=== PATIENT | female | born 1980 | race Two or more races ===

== ENCOUNTER 2019-11-12 05:22 | Day surgery (SDC) | payer OTHER ==
[2019-11-08 18:15] VITALS: BMI 43.4
[2019-11-12] MEDS ORDERED: MIDAZOLAM HCL 2 MG/2 ML SINGLE DOSE VIAL ONE (11:07)
[2019-11-12] MEDS ORDERED: PROPOFOL 20 ML ONE (11:07)
[2019-11-12] MEDS ORDERED: ceFAZolin SODIUM 1 GM VIAL IVPB ONE ×2 (11:30→12:15)
[2019-11-12] MEDS ORDERED: EPHEDRINE SULFATE/0.9% NACL/PF 50 MG/10 ML SYRINGE NR ONE (11:35)
[2019-11-12] MEDS ORDERED: IBUPROFEN 400 MG TABLET (FP) PO PRN (12:55)
[2019-11-12] MEDS ORDERED: ACETAMINOPHEN 325 MG TABLET (FP) PO PRN (12:55)
--- NOTE | 2019-11-12 12:55 | HP ---
History & Physical Update - History History: No Change - Physical Physical: No Change - Assessment Assessment: No Change - Plan Plan: No Change (No change in HP)
--- NOTE | 2019-11-12 13:17 | OP ---
Operative Note - Note: Operative Date: 11/12/19 Pre-Operative Diagnosis: Endometrial polyp Operation: Hysteroscopic Myomectomy. Suction DC Findings: Submucosal myoma Endometrial polyp Post-Operative Diagnosis: Same as Pre-op Surgeon: Johanna Kelley Anesthesia: General Estimated Blood Loss (mls): 30 Operative Report Dictated: Yes
[2019-11-12] MEDS ORDERED: oxyCODONE HCL 5 MG TABLET PO PRN ×2 (14:10)
[2019-11-12] MEDS ORDERED: ONDANSETRON 4 MG/2 ML VIAL IVPUSH PRN (14:10)
[2019-11-12] MEDS ORDERED: LACTATED RINGERS SOLUTION 1,000 ML IV SCH (14:15)
--- NOTE | 2019-11-12 14:47 | OP ---
DATE OF OPERATION: 11/12/2019 PREOPERATIVE DIAGNOSIS: Endometrial polyp, menorrhagia. OPERATION: Hysteroscopic myomectomy. POSTOPERATIVE DIAGNOSIS: Endometrial polyp, menorrhagia, submucosal myoma. SURGEON: Johanna Kelley MD ANESTHESIA: General. DESCRIPTION OF PROCEDURE: Patient was taken to the operating room, placed in dorsal lithotomy position, prepped and draped in the usual sterile fashion. Time-out was performed in accordance with hospital regulation. Speculum was placed in the vagina. Anterior lip of the cervix was grasped with a single-tooth tenaculum. Cervix was then dilated to accommodate the operative hysteroscope. Hysteroscope was then inserted. Visualization revealed endometrial polyps and submucosal myoma. Cautery and cutting of the polyps and myoma was done followed by suction dilation and curettage. Repeated procedure several times was done to get most of the myoma and the polyps out of the endometrial cavity. Hemostasis was achieved. All instruments were then removed. Patient had tolerated procedure well. Estimated blood loss was 20 mL. JOHANNA KELLEY M.D. JOSE ANTONIO/[id number]
[2019-11-12 17:12] VITALS: BP 107/59; PULSE 69; TEMP 97.8
--- NOTE | 2019-11-13 15:26 | PATH ---
Surgical Pathology Report Patient Name: JUAN R JANG Med. Rec. #: [id number] /Age/Gender: 1980 (Age: 39) / F Account: [id number] Location: [facility] SURGICAL Taken: 11/12/2019 Received: 11/12/2019 Reported: 11/13/2019 Physicians: Johanna Kelley M.D. Specimen(s) Received /POLYP Clinical History Cervical dysplasia, endometrial polyp Final Diagnosis ENDOMETRIUM, CURETTING: BENIGN ENDOMETRIAL POLYP, ALONG WITH BENIGN MYOMETRIAL TISSUE AND BENIGN CERVICAL TISSUE. NO ENDOMETRIAL HYPERPLASIA OR CARCINOMA IDENTIFIED. Electronically Signed Cm Delgadillo M.D. Gross Description Received in formalin labeled "endometrial curettings/polyp," is a 4.0 x 2.8 x 0.3 cm aggregate of michelle red soft to firm tissue fragments. The formalin is filtered and the specimen is entirely submitted in 2 cassettes. DL/11/12/2019 saudi/11/12/2019
== END 2019-11-12 15:45 | disposition home or self-care (01) ==
LOC: JASU-SURG 05:22
PROVIDERS: ATTEND Obstetrics & Gynecology
PROC: 0UDB7ZX Extraction of Endometrium, Via Natural or Artificial Opening, Diagnostic (ICD-10-PCS; 2019-11-12)
PROC: 0UJD8ZZ Inspection of Uterus and Cervix, Via Natural or Artificial Opening Endoscopic (ICD-10-PCS; 2019-11-12)
PROC: 0UB98ZZ Excision of Uterus, Via Natural or Artificial Opening Endoscopic (ICD-10-PCS; principal; 2019-11-12 09:30)
PROC: 0UB97ZX Excision of Uterus, Via Natural or Artificial Opening, Diagnostic (ICD-10-PCS; 2019-11-12 09:30)
DX: N92.0 Excessive and frequent menstruation with regular cycle (principal); N84.0 Polyp of corpus uteri; D25.0 Submucous leiomyoma of uterus
CPT/HCPCS: 36415; 84703; 88305-TC; 94760

== ENCOUNTER 2021-01-12 05:32 | Day surgery (SDC) | payer OTHER ==
[2021-01-09 09:02] VITALS: BMI 42.0
[2021-01-12] MEDS ORDERED: DEXAMETHASONE SOD PHOSPHATE/PF 10 MG/ML SDV ONE (07:12)
[2021-01-12] MEDS ORDERED: MIDAZOLAM HCL 2 MG/2 ML SINGLE DOSE VIAL ONE ×3 (07:13→07:22)
[2021-01-12] MEDS ORDERED: PHENAZOPYRIDINE HCL 100 MG TABLET (FP) PO ONE (07:20)
[2021-01-12] MEDS ORDERED: CEFAZOLIN 2 GM in DEXTROSE 5%-WATER - 100 ML IVPB ONE (07:20)
[2021-01-12] MEDS ORDERED: fentaNYL CITRATE 250 MCG/5 ML VIAL ONE (07:21)
[2021-01-12] MEDS ORDERED: PROPOFOL 20 ML ONE ×3 (07:21)
[2021-01-12] MEDS ORDERED: SUCCINYLCHOLINE CHLORIDE 200 MG/10 ML SYRINGE ONE (07:22)
[2021-01-12] MEDS ORDERED: ROCURONIUM BROMIDE 50 MG/5 ML SYRINGE ONE (07:22)
[2021-01-12] MEDS ORDERED: ceFAZolin SODIUM 1 GM VIAL IVPB ONE (07:55)
[2021-01-12 08:58] LABS: POTASSIUM 4.4 mmol/L (3.5-5.1)
[2021-01-12 09:00] LABS: ALBUMIN 3.2 g/dl (3.4-5.0); CALCIUM 8.8 mg/dL (8.5-10.1)
[2021-01-12 09:01] LABS: BLOOD UREA NITROGEN 19.8 mg/dL (7-18)
[2021-01-12 09:04] LABS: CREATININE 0.6 mg/dL (0.55-1.3)
[2021-01-12 09:05] LABS: BILIRUBIN,TOTAL 0.4 mg/dL (0.2-1); TOT PROT 6.6 g/dl (6.4-8.2)
[2021-01-12] MEDS ORDERED: GLYCOPYRROLATE 0.2 MG/1 ML VIAL ONE ×2 (09:36)
[2021-01-12] MEDS ORDERED: DEXAMETHASONE SOD PHOSPHATE 4 MG/1 ML VIAL ONE (09:36)
[2021-01-12] MEDS ORDERED: NEOSTIGMINE METHYLSULFATE 0.5 MG/ML - 10 ML MDV ONE (09:36)
[2021-01-12] MEDS ORDERED: ceFAZolin SODIUM 1 GM VIAL ONE (09:37)
[2021-01-12] MEDS ORDERED: DOCUSATE SODIUM 100 MG CAPSULE (FP) PO PRN (10:53)
[2021-01-12] MEDS ORDERED: BISACODYL 5 MG TABLET.DR (FP) PO PRN (10:53)
[2021-01-12] MEDS ORDERED: ONDANSETRON 4 MG/2 ML VIAL IVPUSH PRN (10:53)
[2021-01-12] MEDS ORDERED: SIMETHICONE 80 MG TAB.CHEW (FP) PO PRN (10:53)
[2021-01-12] MEDS ORDERED: oxyCODONE HCL 5 MG TABLET PO PRN (10:53)
[2021-01-12] MEDS ORDERED: SODIUM CHLORIDE 1,000 ML IV SCH (11:00)
[2021-01-12] MEDS ORDERED: IBUPROFEN 800 MG/8 ML IJ IVPB ONE (12:02)
[2021-01-12] MEDS ORDERED: oxyCODONE HCL 5 MG TABLET ONE (13:57)
[2021-01-12] MEDS: oxyCODONE HCL 5 MG TABLET PO PRN (14:13)
[2021-01-12] MEDS ORDERED: CEFAZOLIN 1 GM in DEXTROSE 5%-WATER - 1 GM/50 ML IVPB IVPB SCH (16:00)
[2021-01-12] MEDS ORDERED: IBUPROFEN 800 MG/8 ML IJ IVPB SCH (16:30)
[2021-01-12] MEDS ORDERED: CEFAZOLIN 1 GM/D5W 1 GM/50 ML BAG IVPB SCH (17:20)
[2021-01-12] MEDS: ACETAMINOPHEN 500 MG TABLET (FP) PO SCH ×2 (17:27→23:50)
[2021-01-12] MEDS: CEFAZOLIN 1 GM/D5W 1 GM/50 ML BAG IVPB SCH ×2 (17:27→23:49)
[2021-01-12] MEDS: IBUPROFEN 800 MG/8 ML IJ IVPB SCH (19:46)
[2021-01-12 20:45] LABS: HEMOGLOBIN 10.6 GM/dL (10.7-15.3); MCH 27.2 pg (25.7-33.7); MCHC 32.1 g/dl (32.0-36.0); MEAN CELL VOLUME 84.6 fl (80-96); MEAN PLT VOLUME 8.2 fl (7.5-11.1); PLATELET COUNT 265 K/MM3 (134-434); RBC 3.91 M/mm3 (3.60-5.2); RDW 14.5 % (11.6-15.6); WHITE BLOOD COUNT 11.2 K/mm3 (4.0-10.0)
[2021-01-12 20:55] LABS: POTASSIUM 4.4 mmol/L (3.5-5.1)
[2021-01-12 20:58] LABS: CALCIUM 8.6 mg/dL (8.5-10.1)
[2021-01-12 20:59] LABS: BLOOD UREA NITROGEN 14.1 mg/dL (7-18)
[2021-01-12 21:02] LABS: CREATININE 0.5 mg/dL (0.55-1.3)
[2021-01-13] MEDS: IBUPROFEN 800 MG/8 ML IJ IVPB SCH ×2 (03:42→12:38)
[2021-01-13] MEDS: ACETAMINOPHEN 500 MG TABLET (FP) PO SCH ×2 (06:16→12:21)
[2021-01-13 08:02] LABS: HEMATOCRIT 29.7 % (32.4-45.2); HEMOGLOBIN 9.8 GM/dL (10.7-15.3); MCH 27.7 pg (25.7-33.7); MCHC 33.1 g/dl (32.0-36.0); MEAN CELL VOLUME 83.8 fl (80-96); MEAN PLT VOLUME 8.3 fl (7.5-11.1); PLATELET COUNT 283 K/MM3 (134-434); RBC 3.54 M/mm3 (3.60-5.2); RDW 14.8 % (11.6-15.6); WHITE BLOOD COUNT 13.1 K/mm3 (4.0-10.0)
[2021-01-13 08:25] LABS: POTASSIUM 3.9 mmol/L (3.5-5.1)
[2021-01-13 08:26] LABS: CALCIUM 8.4 mg/dL (8.5-10.1)
[2021-01-13 08:27] LABS: BLOOD UREA NITROGEN 9.1 mg/dL (7-18)
[2021-01-13 08:30] LABS: CREATININE 0.5 mg/dL (0.55-1.3)
[2021-01-13] MEDS: CEFAZOLIN 1 GM/D5W 1 GM/50 ML BAG IVPB SCH (09:52)
[2021-01-13] MEDS: oxyCODONE HCL 5 MG TABLET PO PRN (09:53)
[2021-01-13] MEDS ORDERED: ENOXAPARIN NA (PORCINE) 40 MG/0.4 ML DISP.SYRIN SQ SCH (10:00)
[2021-01-13 12:50] VITALS: BP 100/62; PULSE 70; TEMP 98.3
== END 2021-01-13 12:42 | disposition home or self-care (01) ==
LOC: JASUSAT 05:32 → J3W 14:22 → JASUSAT 01-13 12:42
PROVIDERS: ATTEND Obstetrics & Gynecology
PROC: 0UT9FZZ Resection of Uterus, Via Natural or Artificial Opening With Percutaneous Endoscopic Assistance (ICD-10-PCS; principal; 2021-01-12 07:30)
PROC: 0UT7FZZ Resection of Bilateral Fallopian Tubes, Via Natural or Artificial Opening With Percutaneous Endoscopic Assistance (ICD-10-PCS; 2021-01-12 07:30)
DX: N80.0 Endometriosis of uterus (principal); N87.9 Dysplasia of cervix uteri, unspecified; N72 Inflammatory disease of cervix uteri; N94.89 Other specified conditions associated with female genital organs and menstrual cycle; N83.8 Other noninflammatory disorders of ovary, fallopian tube and broad ligament
CPT/HCPCS: 36415; 80048; 80053; 84703; 85027; 86850; 86900; 86901; 88302-TC; 88307-TC; 94010; 94760

== ENCOUNTER 2023-08-16 10:10 | Emergency (ER) | payer OTHER ==
[2023-08-16 10:44] VITALS: BP 125/68; PULSE 87; RESP 18; TEMP 97.7; BMI 42.8
[2023-08-16] MEDS ORDERED: LIDOCAINE 5% TOPICAL PATCH TP ONE (11:26)
[2023-08-16] MEDS ORDERED: ACETAMINOPHEN 500 MG TABLET (FP) PO ONE (11:26)
[2023-08-16] MEDS ORDERED: LIDOCAINE 4% PATCH TP ONE ×2 (11:32→11:35)
[2023-08-16] MEDS ORDERED: ACETAMINOPHEN 500 MG TABLET (FP) ONE (11:36)
[2023-08-16 12:11] LABS: BASO % 0.4 % (0-2.0); EOS % 2.1 % (0-4.5); HEMOGLOBIN 13.8 GM/dL (10.7-15.3); LYMPH % 15.9 % (8-40); MCH 28.7 pg (25.7-33.7); MCHC 33.6 g/dl (32.0-36.0); MEAN CELL VOLUME 85.5 fl (80-96); MEAN PLT VOLUME 7.4 fl (7.5-11.1); NEUT % 75.6 % (42.8-82.8); PLATELET COUNT 326 10^3/uL (134-434); RDW 14.3 % (11.6-15.6)
[2023-08-16 12:25] LABS: POTASSIUM 4.2 mmol/L (3.5-5.1)
[2023-08-16 12:27] LABS: BLOOD UREA NITROGEN 13.7 mg/dL (7-18); CALCIUM 8.9 mg/dL (8.5-10.1)
[2023-08-16 12:29] LABS: ALBUMIN 3.6 g/dl (3.4-5.0)
[2023-08-16 12:31] LABS: CREATININE 0.5 mg/dL (0.55-1.3)
[2023-08-16 12:32] LABS: TOT PROT 7.7 g/dl (6.4-8.2)
[2023-08-16 12:35] LABS: BILIRUBIN,TOTAL 0.5 mg/dL (0.2-1)
[2023-08-16] MEDS ORDERED: KETOROLAC TROMETHAMINE 30 MG/1 ML VIAL IM ONE (12:53)
[2023-08-16] MEDS ORDERED: KETOROLAC TROMETHAMINE 30 MG/1 ML VIAL ONE (14:27)
[2023-08-16] MEDS ORDERED: LIDOCAINE PATCH REMOVAL MC SCH (22:00)
[2023-08-16] MEDS ORDERED: LIDOCAINE PATCH REMOVAL MC ONE (22:00)
== END 2023-08-16 15:14 | disposition home or self-care (01) ==
LOC: JER 10:10
PROC: 3E0233Z Introduction of Anti-inflammatory into Muscle, Percutaneous Approach (ICD-10-PCS; principal; 2023-08-16)
DX: R07.89 Other chest pain (principal); M25.551 Pain in right hip; R06.02 Shortness of breath
CPT/HCPCS: 36415; 71046-TC-FY; 73502-TC-RT-FY; 80053; 84484; 84703; 85025; 93005; 93010; 99285-25

== ENCOUNTER 2024-04-10 11:16 | Emergency (ER) | payer BC, OTHER ==
[2024-04-10 11:44] VITALS: BP 107/66; PULSE 80; RESP 18; TEMP 98.6; BMI 42.0
[2024-04-10] MEDS ORDERED: ACETAMINOPHEN INJECTION 100 ML IVPB ONE (12:38)
[2024-04-10] MEDS ORDERED: FAMOTIDINE 20 MG/50 ML IVPB 20 MG/50 ML MG IVPB ONE (12:38)
[2024-04-10] MEDS ORDERED: MAG HYDROX/AL HYDROX/SIMETH 30 ML UNIT-DOSE CUP ONE (12:38)
[2024-04-10] MEDS ORDERED: ONDANSETRON 4 MG/2 ML VIAL ONE (12:38)
[2024-04-10] MEDS: SODIUM CHLORIDE 0.9% 500 ML INFUS.BAG IV ONE (12:45)
[2024-04-10] MEDS: ONDANSETRON 4 MG/2 ML VIAL IVPUSH ONE (12:45)
[2024-04-10] MEDS: MAG HYDROX/AL HYDROX/SIMETH 30 ML UNIT-DOSE CUP PO ONE (12:45)
[2024-04-10 12:46] LABS: BASO % 0.5 % (0-2.0); EOS % 1.7 % (0-4.5); HEMATOCRIT 38.4 % (32.4-45.2); HEMOGLOBIN 13.1 GM/dL (10.7-15.3); LYMPH % 20.1 % (8-40); MCH 29.1 pg (25.7-33.7); MCHC 34.1 g/dl (32.0-36.0); MEAN CELL VOLUME 85.4 fl (80-96); MEAN PLT VOLUME 7.2 fl (7.5-11.1); MONO % 6.2 % (3.8-10.2); NEUT % 71.5 % (42.8-82.8); PLATELET COUNT 365 10^3/uL (134-434); RBC 4.49 M/mm3 (3.60-5.2); RDW 13.9 % (11.6-15.6); WHITE BLOOD COUNT 9.2 K/mm3 (4.0-10.0)
[2024-04-10] MEDS: ACETAMINOPHEN 1000 MG/100 ML BAG IVPB ONE (12:50)
[2024-04-10 13:03] LABS: POTASSIUM 4.6 mmol/L (3.5-5.1)
[2024-04-10 13:05] LABS: CALCIUM 9.3 mg/dL (8.5-10.1)
[2024-04-10 13:06] LABS: ALBUMIN 3.7 g/dl (3.4-5.0); BLOOD UREA NITROGEN 15.6 mg/dL (7-18)
[2024-04-10 13:09] LABS: CREATININE 0.7 mg/dL (0.55-1.3)
[2024-04-10 13:10] LABS: BILIRUBIN,TOTAL 0.6 mg/dL (0.2-1); TOT PROT 7.5 g/dl (6.4-8.2)
[2024-04-10] MEDS: FAMOTIDINE 20 MG/50 ML IVPB 20 MG/50 ML MG IVPB ONE (13:10)
== END 2024-04-10 18:54 | disposition home or self-care (01) ==
LOC: JER 11:16
PROC: 3E033GC Introduction of Other Therapeutic Substance into Peripheral Vein, Percutaneous Approach (ICD-10-PCS; principal; 2024-04-10)
PROC: 3E033GC Introduction of Other Therapeutic Substance into Peripheral Vein, Percutaneous Approach (ICD-10-PCS; 2024-04-10)
PROC: 3E033NZ Introduction of Analgesics, Hypnotics, Sedatives into Peripheral Vein, Percutaneous Approach (ICD-10-PCS; 2024-04-10)
DX: K52.9 Noninfective gastroenteritis and colitis, unspecified (principal); R11.2 Nausea with vomiting, unspecified; R10.84 Generalized abdominal pain
CPT/HCPCS: 36415; 74177-TC; 80053; 83690; 85025; 99285-25; J0131; Q9967

== ENCOUNTER 2024-04-16 16:31 | Emergency (ER) | payer OTHER, BC ==
[2024-04-16 16:38] VITALS: BP 143/62; PULSE 82; RESP 18; TEMP 98.5; BMI 42.0
[2024-04-16] MEDS ORDERED: KETOROLAC TROMETHAMINE 30 MG/1 ML VIAL ONE (18:22)
[2024-04-16] MEDS: KETOROLAC TROMETHAMINE 15 MG/ML VIAL IM ONE (18:32)
== END 2024-04-16 18:57 | disposition home or self-care (01) ==
LOC: JERFT 16:31
PROC: 3E0133Z Introduction of Anti-inflammatory into Subcutaneous Tissue, Percutaneous Approach (ICD-10-PCS; principal; 2024-04-16)
DX: S80.02XA Contusion of left knee, initial encounter (principal); W01.0XXA Fall on same level from slipping, tripping and stumbling without subsequent striking against object, initial encounter; Y99.0 Civilian activity done for income or pay
CPT/HCPCS: 73562-TC-LT-FY; 99284-25